=== PATIENT | male | born 1990 | race Caucasian/White ===

== ENCOUNTER 2016-05-09 21:50 | Emergency (ER) | payer OTHER ==
[~2016-05-09] VITALS: Ht 177.8 cm; Wt 75.1 kg
[2016-05-09 21:54] VITALS: TEMP 36.9; Ht 177.8 cm; Wt 75.1 kg
[2016-05-09] MEDS ORDERED: FEXO1TAB58 PO (22:36)
[2016-05-09] MEDS ORDERED: IBUP-103 PO (22:36)
[2016-05-09] MEDS ORDERED: AMOX875T PO (22:41)
[2016-05-09] MEDS ORDERED: AMOXICIL/CLAVU 875MG HOME PACK PO ONE (22:45)
[2016-05-09 23:06] VITALS: BP 140/89; PULSE 91; O2SAT 98
--- NOTE | 2016-05-10 00:39 | EMERGENCY ROOM VISIT NOTE ---
History First contact with patient: 22:14 Chief Complaint: EAR PAIN Stated Complaint: EAR BLEEDING, RIGHT History of Present Illness The patient is a 26 year old male who presents to the Emergency Room with complaints of blood coming from his right ear. The patient states that he has had sinus congestion symptoms for the past week, but nothing to the extent that he sought medical attention. He states that he came home from work today, and slept. When he awoke and there was blood on his pillow and in his ear canal. The patient feels like his right ear needs to pop, but he is not able to force this to occur. He does not have sore throat, fever, chills, lightheadedness, dizziness, chest pain, chest tightness, or other symptoms. His hearing is slightly muffled, but he is able to hear from this ear. He has not had similar symptoms in the past. He rates his discomfort a 5/10. Review of Systems More than 10 systems were reviewed and otherwise negative with the exception of history of present illness. Past Medical/Surgical History No chronic medical disease Family History No pertinent family history Social History Smoking Status: Current Some Day Smoker Current/Historical Medications Scheduled Amoxicillin & Pot Clavulanate (Augmentin 875-125 mg), 1 TAB PO BID Scheduled PRN Fexofenadine-Pseudoephedrine (Nicol-D 24 Hour Allergy), 1 TAB PO DAILY PRN for Allergy Symptoms Ibuprofen Tab (Advil), 400-600 MG PO Q6H PRN for Pain or Fever Allergies Coded Allergies: No Known Allergies (Unverified , 05/09/16) Physical Exam Vital Signs Date Time Temp Pulse Resp B/P Pulse Ox O2 Delivery O2 Flow Rate FiO2 05/09/16 23:06 91 16 140/89 98 05/09/16 21:54 36.9 103 16 154/101 97 Room Air Pain Rating (0-10): 0 Physical Exam VITALS: Vitals are noted on the nurse's note and reviewed by myself. Vital signs stable. GENERAL: Well-developed, well-nourished, white male, who is in no acute distress and resting comfortably. Patient is cooperative with the examination. HEAD: Normocephalic atraumatic. EARS: External ear normal. Left external canal and TM appear normal. Right canal is with dried blood inferiorly. The right TM appears to have blood along the 3:00 to 6:00 distribution. There appears to be a very small perforation as the likely source of the blood. EYES: Pupils equal round and reactive to light and accommodation. Conjunctivae without injection, sclerae without icterus. Extraocular movements intact. NOSE: Patent, turbinates without inflammation or discharge. MOUTH: Mucous membranes moist. Tonsils are not enlarged. Pharynx without erythema, blood, or exudate. Uvula midline. Airway patent. NECK: Supple without nuchal rigidity. No lymphadenopathy. No thyromegaly. Cervical spine is nontender. HEART: Regular rate and rhythm without murmurs gallops or rubs. LUNGS: Clear to auscultation bilaterally without wheezes, rales or rhonchi. No retractions or accessory muscle use. Medical Decision & Procedures Medications Administered Medications (Trade) Dose Ordered Sig/Rebeca Route Start Time Stop Time Status Last Admin Dose Admin Amoxicillin/ Clavulanate Potassium (Augmentin 875MG Home Pack) 1 homepack UD ONCE PO 05/09/16 22:45 05/09/16 22:46 DC 05/09/16 22:45 1 HOMEPACK ED Course Physical exam and history were performed. Nursing notes and EMR were reviewed. Patient appears to have a ruptured tympanic membrane, causing blood coming from the right ear. On exam the rupture is quite small, and appears to be nearly healed. I suspect the patient's symptoms are from his sinuses or possibly an OM , although no purulent drainage was noted on exam. I will start the patient on Augmentin and give him information to follow with ENT. The patient may use over -the-counter analgesics for pain, and he was invited back to the ER with any new , worsening, or concerning symptoms. The chart was completed utilizing [employer] Voice Recognition Software. Grammatical errors, random word insertions, pronoun errors, and incomplete sentences are an occasional consequence of this system due to software limitations, ambient noise, and hardware issues. Any formal questions or concerns about the content, text, or information contained within the body of this dictation should be directly addressed to the provider for clarification. . Medical Decision Differential diagnosis: Etiologies such as viral syndrome, otitis, pharyngitis, pneumonia, influenza, meningitis, urinary tract infection, sepsis, bacteremia, as well as others were entertained. Impression Primary Impression: Ruptured tympanic membrane Departure Information Dispostion Home / Self-Care Condition GOOD Prescriptions Amoxicillin & Pot Clavulanate (Augmentin 875-125 mg) 1 Tab Tab 1 TAB PO BID for 9 Days, #18 TAB Prov: Jak Yeung PA-C 05/09/16 Referrals Ortega Menard MD Oesterling, Brett, M.D. (PCP) Forms HOME CARE DOCUMENTATION FORM, Work Instructions, Additional Instructions: Patient was seen and evaluated today in the emergency department fo medical care. Return to work on 05/13/2016. Please excuse. IMPORTANT VISIT INFORMATION Patient Instructions My [facility] Additional Instructions You were seen and evaluated today on an emergency basis only. This is not a substitute for, or an effort to provide, complete comprehensive medical care. It is not possible to recognize and treat all injuries or illnesses in a single emergency department visit. For this reason it is recommended that you followup with your primary care physician next week for ongoing evaluation. You may also follow with Dr. Menard, Ear/Nose/Throat specialist. Amoxicillin Clavulanate (Augmentin) 875mg: Take one pill twice daily for 10 total days for your infection. All antibiotics can cause diarrhea. If this occurs and you feel worse or it does not resolve in 1-2 days follow up with your doctor or return to the Emergency Department as this could be signs of serious underlying problems. Any medication can cause an allergic reaction, stop the pills immediately and return to the ER for rash, hives, breathing difficulties, or swelling. You are welcome to return to the emergency department anytime with new, worsening, or concerning symptoms. Work Instructions Additional Work Instructions: Patient was seen and evaluated today in the emergency department for medical care. Return to work on 05/13/2016. Please excuse.
== END 2016-05-09 23:07 | disposition home or self-care (01) ==
LOC: C.EDB 21:52 → C.EDD 23:07
DX: H72.91 Unspecified perforation of tympanic membrane, right ear (principal); F17.210 Nicotine dependence, cigarettes, uncomplicated

== ENCOUNTER 2016-06-19 09:58 | Emergency (ER) | payer OTHER ==
[~2016-06-19] VITALS: Ht 177.8 cm; Wt 73.0 kg
[~2016-06-19 09:58] MED LIST: FEXO1TAB58 PO; IBUP-103 PO
[2016-06-19 10:12] VITALS: TEMP 36.6; O2SAT 96; Ht 177.8 cm; Wt 73.0 kg
[2016-06-19] MEDS ORDERED: XYLOCAINE 1%/SOD BICARB 20 ML VIAL INFIL ONE (10:20)
--- NOTE | 2016-06-19 10:44 | EMERGENCY ROOM VISIT NOTE ---
ED Visit Note First contact with patient: 10:26 CHIEF COMPLAINT: Right leg laceration HISTORY OF PRESENT ILLNESS: This 26-year-old male patient presents to the emergency department ambulatory after cutting the right leg at work when a piece of sharp metal fell on his leg and cut it. He states that he was holding the piece of metal in his right hand slipped and the piece of metal slid down his leg. The bleeding has none stopped. Denies weakness or numbness of the foot or toes. He rates his discomfort a 3/10. The patient denies any other injuries. The patient's Tetanus shot is up to date. REVIEW OF SYSTEMS: A 6 system review of systems was completed with positives and pertinent negatives listed in the HPI. ALLERGIES: No known allergies MEDICATIONS: None PMH: None SOCIAL HISTORY: The patient is employed. He is a smoker. PHYSICAL EXAM: Vital Signs: Reviewed Nurse's notes, vital signs stable. GENERAL : This is a 26-year-old male, in no acute distress, well-developed, well- nourished. SKIN: There is a 9 cm long laceration on the anterior aspect of the right lower leg. The edges gape apart with traction. There is no foreign material in the wound and it looks clean. There is mild bleeding. No deep structures such as tendons, bones, or nerves are seen in the base of the wound. Normal strength and movement of the foot and toes. Capillary refill less than 2 seconds. Normal sensation to light and sharp touch. EMERGENCY DEPARTMENT COURSE: I examined the patient. Using sterile technique the wound was cleaned with Betadine. The area was sterilely draped. 8 ml of 1% buffered lidocaine was used to anesthetize the laceration on the leg. Once the patient was numb, the wound was copiously irrigated under pressure with sterile saline. The bone was visible in the base of the wound. The laceration was repaired using a 3 layer closure, a running suture of 4-0 Vicryl was used to close the deep layer, 4 simple interrupted 4-0 Vicryl sutures were used to close the subcutaneous tissue and 10 simple interrupted 4-0 nylon sutures and 3 4-0 nylon vertical mattress sutures were used to close the skin with the wound edges being well approximated. The patient tolerated the procedure well. The bleeding stopped. The area was cleaned with sterile saline and dressed with bacitracin ointment and bandage. The patient was discharged home in good condition. Current/Historical Medications Scheduled Cephalexin Monohydrate (Keflex), 500 MG PO QID Allergies Coded Allergies: No Known Allergies (Unverified , 06/19/16) Vital Signs Date Time Temp Pulse Resp B/P Pulse Ox O2 Delivery O2 Flow Rate FiO2 06/19/16 13:15 76 18 126/74 06/19/16 10:12 36.6 101 18 133/76 96 Room Air Departure Information Impression Primary Impression: Laceration Dispostion Home / Self-Care Condition GOOD Prescriptions Cephalexin Monohydrate (Keflex) 500 Mg Cap 500 MG PO QID for 7 Days, #28 CAP Prov: Xena Irwin PA-C 06/19/16 Referrals Lisandro Zapien M.D. (PCP) Patient Instructions ED Laceration All, My [facility] Additional Instructions Keep wound clean and dry. Do not allow any crusting or dried blood to accumulate on sutures. If this occurs, use a 1:1 solution of hydrogen peroxide/ water on a Q-tip to clean the wound. Use an antibiotic ointment for 3-4 days, then let wound dry. Suture removal in 12-14 days. Return sooner for any signs of infection (increasing redness, swelling, drainage). Ice and elevate for swelling and pain. Ibuprofen 600 mg every 6 hrs for pain. Keep covered when in sun until sutures removed then SPF 50 or higher for one year. Vitamin E oil if desired two weeks after suture removal for reduction of scar. Keflex every 6 hours for 7 days to help prevent infection Return sooner with any worsening symptoms
--- NOTE | 2016-06-19 10:56 | DIAGNOSTIC IMAGING REPORT ---
RIGHT TIBIA/FIBULA 2 VIEWS ROUTINE CLINICAL HISTORY: Right leg laceration COMPARISON: None. DISCUSSION: No fractures are visualized. No radiopaque foreign bodies are evident. Faint radiopacities projected over the anterior soft tissues at the mid tibial level, likely related to an overlying bandage. IMPRESSION: No acute fractures identified. No definite foreign bodies. Electronically signed by: Con Manuel M.D. 06/19/2016 10:55 AM Dictated Date/Time: 06/19/2016 10:54 AM
[2016-06-19] MEDS ORDERED: CEPH500C PO (12:11)
[2016-06-19 13:15] VITALS: BP 126/74; PULSE 76
== END 2016-06-19 13:15 | disposition home or self-care (01) ==
LOC: C.EDB 10:01
DX: S81.811A Laceration without foreign body, right lower leg, initial encounter (principal); F17.200 Nicotine dependence, unspecified, uncomplicated; Y99.0 Civilian activity done for income or pay

== ENCOUNTER 2016-07-02 10:10 | Emergency (ER) | payer OTHER ==
[~2016-07-02] VITALS: Ht 177.8 cm; Wt 73.8 kg
[2016-07-02 10:12] VITALS: BP 141/79; PULSE 108; TEMP 36.8; O2SAT 100; Ht 177.8 cm; Wt 73.8 kg
--- NOTE | 2016-07-02 10:27 | EMERGENCY ROOM VISIT NOTE ---
History Report prepared by Karishma: Honey Larsen Under the Supervision of: Dr. Dewayne Larios M.D. First contact with patient: 10:17 Chief Complaint: SUTURE/STAPLE REMOVAL Stated Complaint: REMOVAL OF STITCHES Nursing Triage Summary: patient here to have sutures removed from lower right leg History of Present Illness The patient is a 26 year old male who presents to the Emergency Room for suture removal. The patient was in the emergency room 2 weeks ago with a laceration to his right mercado from an accident at work. He received 10 simple interrupted 4-0 nylon sutures and 3 4-0 nylon vertical mattress sutures to close the wound. He was put on Keflex and has since finished the antibiotics. There has been no pus from the wound. He denies any complications since the laceration repair. Source of History: patient Onset: today Position: other (right mercado) Quality: other (suture removal) Review of Systems See HPI for pertinent positives & negatives. A total of 6 systems reviewed and were otherwise negative. Past Medical & Surgical Surgical Problems: (1) History of appendectomy Family History Patient reports no known family medical history. Social History Smoking Status: Never Smoker Marital Status: single Occupation Status: employed Current/Historical Medications No Active Prescriptions or Reported Meds Allergies Coded Allergies: No Known Allergies (Unverified , 07/02/16) Physical Exam Vital Signs Date Time Temp Pulse Resp B/P Pulse Ox O2 Delivery O2 Flow Rate FiO2 07/02/16 10:12 36.8 108 20 141/79 100 Room Air Physical Exam GENERAL: Patient is well appearing and in no acute distress. EXTREMITIES: Right mercado laceration healing well with sutures intact. NV intact. No swelling, erythema, fluctuance, or evidence of infection. SKIN: No rash, no jaundice, no diaphoresis. Medical Decision & Procedures ED Course 1018: The patient was evaluated in room A3. A complete history and physical exam was performed. I removed sutures and placed Steri strips. Discussed discharge instructions: The patient verbalized understanding and agreement. The patient is ready for discharge. Medical Decision Pleasant 26 yr old 1+ week post sutures right mercado for laceration. Tetanus UTD. Finished course ABX. No evidence of infection. Sutures removed. Placed steri strips given tense location though no current wound dehiscence. Stable and looks well. Discussed wound care. Impression Primary Impression: Encounter for removal of sutures Additional Impression: Encounter for re-check of laceration wound Scribe Attestation The scribe's documentation has been prepared under my direction and personally reviewed by me in its entirety. I confirm that the note above accurately reflects all work, treatment, procedures, and medical decision making performed by me. Departure Information Dispostion Home / Self-Care Prescriptions No Active Prescriptions or Reported Meds Referrals No Doctor, Assigned (PCP) Patient Instructions [facility] Additional Instructions Continue wound care as discussed. Return if signs of infection. Avoid trauma to area. Problem Qualifiers
== END 2016-07-02 10:39 | disposition home or self-care (01) ==
LOC: C.EDB 10:11 → C.EDA 10:39
DX: Z48.02 Encounter for removal of sutures (principal); S81.811A Laceration without foreign body, right lower leg, initial encounter; Z98.890 Other specified postprocedural states